=== PATIENT | male | born 1945 | race Caucasian/White ===

== ENCOUNTER → 2022-02-11 15:49 | Outpatient (CLI) | payer OTHER, SELFPAY ==
--- NOTE | 2022-02-11 | DI.ECHO.S_ITS ---
[facility] +---------+ : : [address] : [place] : : : : [id number] : : : : Phone: [phone]---------+ Echocardiogram Report + + :Name: STEFFANIE AMBROSIO Study Date: 02/11/2022 Height: 67 in : :[facility] ReadingLocation: Weight: 185 lb : : Gender: Male BSA: 2.0 m2 : :: 1945 Age: 77 yrs BP: 166/88 mmHg: :Reason For Study: CAD : :Ordering Physician: Tarun, : :Yosi Performed By: Silvio Olmedo : :Referring: Yosi Mcneil : + + Interpretation Summary The patient was in normal sinus rhythm during the exam. The left ventricle is normal in size and wall thickness. Left ventricular ejection fraction is estimated to be 55 +/- 5%. Diastolic parameters suggest probable normal left ventricular diastolic function and normal filling pressures. Trivial valvular disease No prior study for comparison. Procedure: A two-dimensional transthoracic echocardiogram with color flow and Doppler was performed. The study quality was technically difficult. There is no prior echocardiogram noted for this patient. The patient was in normal sinus rhythm during the exam. Left Ventricle: The left ventricle is normal in size and wall thickness. Left ventricular systolic function is normal. Left ventricular ejection fraction is estimated to be 55 +/- 5%. There are no focal wall motion abnormalities. Diastolic parameters suggest probable normal left ventricular diastolic function and normal filling pressures. Right Ventricle: The right ventricle is normal in size and function. Atria: Both atria are normal in size. The interatrial septum grossly appears intact with no obvious evidence for an atrial septal defect. Mitral Valve: There is mild mitral annular calcification. There is trace mitral regurgitation. Aortic Valve: The aortic valve is normal in structure and function. No aortic regurgitation is present. Tricuspid Valve: The tricuspid valve is normal in structure and function. There is trace tricuspid regurgitation. The right ventricular systolic pressure is estimated to be at least 21 mmHg based on an estimated right atrial pressure of 3 mm Hg. Pulmonic Valve: The pulmonic valve is normal in structure and function. There is no pulmonic valvular regurgitation. Great Vessels: The aortic root is normal size. The dimensions of the ascending aorta are normal. The IVC is of normal diameter and collapses greater than 50% with a sniff. This suggests a low right atrial pressure of 3 mm Hg. Pericardium/ Pleura There is no pericardial effusion. There is no pleural effusion. MMode/2D Measurements & Calculations LVIDd: 4.5 cm LVOT diam: 2.2 cm LVIDs: 3.2 cm Ao root diam: 3.4 cm FS: 28.9 % asc Aorta Diam: 3.6 cm IVSd: 1.1 cm LVPWd: 0.90 cm LV zhang. diameter/BSA (cm/m^2): 2.3 LV sys. diameter/BSA (cm/m^2): 1.6 LA dimension: 3.3 cm RA long axis: 5.1 cm LA A2 area: 20.0 cm2 LA A4 area: 13.3 cm2 LA length (vol): 6.0 cm LA vol: 37.6 ml LA vol index: 19.2 ml/m2 TAPSE_phl: 2.4 cm Doppler Measurements & Calculations Ao V2 max: 133.0 cm/sec LVOT Max Fred: 114.0 cm/sec Ao V2 mean: 92.8 cm/sec LV V1 max P.2 mmHg Ao max P.0 mmHg LV V1 VTI: 26.9 cm Ao mean P.0 mmHg RICHY(I,D): 3.2 cm2 Ao V2 VTI: 31.5 cm RICHY(V,D): 3.3 cm2 sev ratio: 0.85 RICHY indexed to BSA (cm^2/m^2): 1.7 MV E max fred: 93.8 cm/sec TR max fred: 209.0 cm/sec MV A max fred: 82.7 cm/sec TR max P.5 mmHg MV E/A: 1.1 Med Peak E' Fred: 8.1 cm/sec E/E' med: 11.6 Lat Peak E' Fred: 12.7 cm/sec E/E' lat: 7.4 E/e' average: 9.5 MV dec time: 0.21 sec SV(LVOT): 102.3 ml AV VR_phl: 0.86 RICHY(VTI)/BSA_phl: 1.7 MV P1/2t-pr_phl: 62.0 msec Reading Physician:SATHISH
== END ==
PROVIDERS: Referring Provider Family Medicine; Visit Provider Family Medicine
DX: I34.81 Nonrheumatic mitral (valve) annulus calcification (principal); I25.10 Atherosclerotic heart disease of native coronary artery without angina pectoris
CPT/HCPCS: 93306